=== PATIENT | female | born 1960 | race Caucasian/White ===

== ENCOUNTER 2017-01-02 13:33 | Emergency (ER) | payer OTHER ==
[2017-01-02 13:59] VITALS: BMI 34.4
[2017-01-02 14:05] VITALS: O2SAT 98
--- NOTE | 2017-01-02 14:48 | C.PDOC ---
History Of Present Illness Patient is a 56 year old female who presents to the ER with a complaint of a headache for the past 4 days and weakness for the past 6 months. Patient states she went to ENT doctor today who diagnosed her headache as a result of congestion. Patient also states her weakness gets better after she eats but comes back. Patient has a history of thyroid problems, HTN, diabetes, depression , and anxiety. Denies any nausea, vomiting, or diarrhea. PMD: In [place], [place] Time Seen by Provider: 01/02/17 14:34 Chief Complaint (Nursing): Weakness/Neurological Deficit History Per: Patient History/Exam Limitations: no limitations Onset/Duration Of Symptoms: Days (4 day headache, 6 months weakness) Current Symptoms Are (Timing): Still Present Past Medical History Reviewed: Historical Data, Nursing Documentation, Vital Signs Vital Signs: Last Vital Signs Temp 97.2 F L 01/02/17 16:14 Pulse 60 01/02/17 16:14 Resp 18 01/02/17 16:14 BP 102/67 01/02/17 16:14 Pulse Ox 98 01/02/17 16:30 - Medical History PMH: Anxiety, Arthritis (carpal tunnel), Depression, Gastritis, HTN, Hypercholesterolemia, Hyperlipidemia, Hypothyroidism, TIA (JANUARY 2016) - [facility] Procedures FLUOROSCOPY OF LEFT HEART USING LOW OSMOLAR CONTRAST (04/13/16) FLUOROSCOPY OF MULT COR ART USING L OSM CONTRAST (04/13/16) MEASURE OF CARDIAC SAMPL & PRESSURE, L HEART, PERC APPROACH (04/13/16) Family History: States: Diabetes - Social History Hx Tobacco Use: No Hx Alcohol Use: Yes Hx Substance Use: No - Immunization History Hx Tetanus Toxoid Vaccination: No Hx Influenza Vaccination: Yes (2016) Hx Pneumococcal Vaccination: No Review Of Systems Constitutional: Negative for: Fever, Chills ENT: Negative for: Nose Congestion Cardiovascular: Negative for: Chest Pain, Palpitations Respiratory: Negative for: Shortness of Breath Gastrointestinal: Negative for: Nausea, Vomiting, Diarrhea Neurological: Positive for: Headache Physical Exam - Physical Exam Appears: Well, Non-toxic Skin: Normal Color, Warm, Dry Head: Atraumatic, Normacephalic, Tenderness (frontal sinus tenderness) Eye(s): bilateral: Normal Inspection, EOMI Nose: Normal Oral Mucosa: Moist Tongue: Normal Appearing Lips: Normal Appearing Throat: Normal Neck: Normal Chest: Symmetrical Cardiovascular: Rhythm Regular, No Murmur Respiratory: Normal Breath Sounds, No Rales, No Rhonchi, No Wheezing Gastrointestinal/Abdominal: Soft, No Tenderness Extremity: No Pedal Edema Neurological/Psych: Oriented x3, Normal Speech, Normal Cognition ED Course And Treatment - Laboratory Results Result Diagrams: 01/02/17 15:10 01/02/17 15:10 O2 Sat by Pulse Oximetry: 98 (Room air) Pulse Ox Interpretation: Normal Progress Note: Blood work, chest x-ray, and urinalysis ordered. Medical Decision Making Medical Decision Making: Initial Impression: 1) Sinusitis, 2) Generalized Malaise Initial Plan: Will check labs Progress notes: 16:20 PM - Pt feels better; looks well. will d/c home Disposition Counseled Patient/Family Regarding: Studies Performed, Diagnosis, Need For Followup, Rx Given - Disposition Disposition: HOME/ ROUTINE Disposition Time: 16:27 Condition: GOOD Additional Instructions: Ms. Wells, thank you for letting us take care of you today. Return to the ER if your symptoms worsen, or if any problems. Your ENT doctor gave you two prescriptions (Bactrim and Flonase). Please be sure to take those medications as prescribed. Follow up with your primary care physician in [place] next week for a re- evaluation. Prescriptions: Ibuprofen [Motrin] 1 tab PO Q8 PRN #30 tab PRN Reason: Pain, Moderate (4-7) Instructions: Sinusitis (ED) Forms: Gen Discharge Inst Israeli Print Language: [place] R[place] - Clinical Impression Clinical Impression: Sinusitis - Scribe Statement The provider has reviewed the documentation as recorded by the Kathleenibbryanna Denton All medical record entries made by the Kathleenibbryanna were at my direction and personally dictated by me. I have reviewed the chart and agree that the record accurately reflects my personal performance of the history, physical exam, medical decision making, and the department course for this patient. I have also personally directed, reviewed, and agree with the discharge instructions and disposition.
[2017-01-02 15:18] LABS: BASO # 0.1 K/uL (0.0-0.2); EOS # 0.1 K/uL (0.0-0.7); EOS % 2.4 % (0.0-4.0); HEMATOCRIT 31.7 % (34.0-47.0); LYMPH # 1.9 K/uL (1.0-4.3); LYMPH % 31.2 % (20.0-40.0); MEAN CELL VOLUME 82.3 fL (81.0-99.0); MEAN CORPUSCULAR HEMOGLOBIN 26.3 pg (27.0-31.0); MEAN PLATELET VOLUME 10.3 fL (7.2-11.7); MONO # 0.4 K/uL (0.0-0.8); NRBC % 0.1 % (0.0-2.0); RED CELL DISTRIBUTION WIDTH 15.5 % (11.5-14.5); WHITE BLOOD COUNT 6.2 K/uL (4.8-10.8)
--- NOTE | 2017-01-02 15:22 | RAD ---
HISTORY: Complaint of Katie normal as. COMPARISON: No prior. TECHNIQUE: Chest PA and lateral FINDINGS: LUNGS: No active pulmonary disease. PLEURA: No significant pleural effusion identified. No pneumothorax apparent. CARDIOVASCULAR: No radiographic findings to suggest acute or significant cardiovascular disease. OSSEOUS STRUCTURES: No significant abnormalities. VISUALIZED UPPER ABDOMEN: Normal. OTHER FINDINGS: None. IMPRESSION: No active disease. No significant interval change compared to the prior examination(s).
[2017-01-02 15:29] LABS: RBC URINE 4 /hpf (0-3); URINE BILIRUBIN NEGATIVE (NEGATIVE); URINE BLOOD NEGATIVE (NEGATIVE); URINE COLOR Yellow (YELLOW); URINE GLUCOSE (UA) NORMAL (Normal); URINE KETONE NEGATIVE (NEGATIVE); URINE LEUKOCYTE ESTERASE 2+ Leu/uL (Negative); URINE PROTEIN NEGATIVE (NEGATIVE); URINE UROBILINOGEN NORMAL mg/dL (0.2-1.0); WBC URINE 24 /hpf (0-5)
[2017-01-02 15:50] LABS: CHLORIDE 101 mmol/L (98-107); POTASSIUM 4.3 mmol/L (3.6-5.2); SODIUM 137 mmol/L (132-148)
[2017-01-02 15:52] LABS: BILIRUBIN,TOTAL 0.5 mg/dL (0.2-1.3); GFR AFRICAN-AMERICAN > 60
[2017-01-02 15:53] LABS: ALB/GLOB RATIO 1.5 (1.0-2.1); ALKALINE PHOSPHATASE 70 U/L (38-126); ALT/SGPT 22 U/L (9-52); AST/SGOT 24 U/L (14-36); BLOOD UREA NITROGEN 18 mg/dL (7-17); CALCIUM 8.5 mg/dl (8.6-10.4); CARBON DIOXIDE 26 mmol/L (22-30); GLUCOSE,RANDOM 98 mg/dL (65-105); TOTAL PROTEIN 7.1 g/dL (6.3-8.3)
[2017-01-02 16:14] VITALS: BP 102/67; PULSE 60; RESP 18; TEMP 97.2
--- NOTE | 2017-01-06 12:28 | CARD ---
APPROVED REPORT EKG Measurement Heart [id number] CT [id number] <Conclusion> Normal sinus rhythm Normal ECG
== END 2017-01-02 16:56 | disposition home or self-care (01) ==
LOC: C.ER 13:33
DX: J32.9 Chronic sinusitis, unspecified (principal)

== ENCOUNTER 2017-03-08 10:12 | Emergency (ER) | payer OTHER ==
[2017-03-08 10:13] VITALS: BMI 34.4
[2017-03-08 10:17] VITALS: BP 118/74; PULSE 63; TEMP 97.9
[2017-03-08 10:57] LABS: RBC URINE 4 /hpf (0-3); URINE BACTERIA RARE (<OCC); URINE BILIRUBIN NEGATIVE (NEGATIVE); URINE BLOOD NEGATIVE (NEGATIVE); URINE COLOR Yellow (YELLOW); URINE GLUCOSE (UA) NORMAL (Normal); URINE KETONE TRACE mg/dL (NEGATIVE); URINE LEUKOCYTE ESTERASE 3+ Leu/uL (Negative); URINE PROTEIN NEGATIVE (NEGATIVE); WBC URINE 24 /hpf (0-5)
[2017-03-08] MEDS ORDERED: Naproxen 550 mg Tab PO STA (10:59)
[2017-03-08] MEDS ORDERED: Naproxen 550 mg Tab PO ONE (11:10)
[2017-03-08 11:13] VITALS: RESP 18
[2017-03-08 11:14] VITALS: O2SAT 99
--- NOTE | 2017-03-08 11:14 | C.PDOC ---
History Of Present Illness Patient c/o suprapubic & low back pain, dysuria x 2 days. She denies hematuria , nausea/vomiting/diarrhea, vaginal bleeding/discharge, fever, falls/injuries. PMHx of DM, HTN, hypothyroidism. Time Seen by Provider: 03/08/17 10:23 Chief Complaint (Nursing): Female Genitourinary History Per: Patient History/Exam Limitations: no limitations Onset/Duration Of Symptoms: Days (2) Current Symptoms Are (Timing): Still Present Severity: Mild Quality Of Discomfort: "Pain" Abnormal Vaginal Bleeding: No Past Medical History Reviewed: Historical Data, Nursing Documentation, Vital Signs Vital Signs: Last Vital Signs Temp 97.9 F 03/08/17 11:13 Pulse 63 03/08/17 11:13 Resp 18 03/08/17 11:13 BP 118/74 03/08/17 11:13 Pulse Ox 99 03/08/17 11:17 - Medical History PMH: Anxiety, Arthritis (carpal tunnel), Depression, Gastritis, HTN, Hypercholesterolemia, Hyperlipidemia, Hypothyroidism, TIA (JANUARY 2016) - [facility] Procedures FLUOROSCOPY OF LEFT HEART USING LOW OSMOLAR CONTRAST (04/13/16) FLUOROSCOPY OF MULT COR ART USING L OSM CONTRAST (04/13/16) MEASURE OF CARDIAC SAMPL & PRESSURE, L HEART, PERC APPROACH (04/13/16) Family History: States: Diabetes - Social History Hx Tobacco Use: No Hx Alcohol Use: Yes Hx Substance Use: No - Immunization History Hx Tetanus Toxoid Vaccination: No Hx Influenza Vaccination: Yes (2016) Hx Pneumococcal Vaccination: No Review Of Systems Except As Marked, All Systems Reviewed And Found Negative. Constitutional: Negative for: Fever, Chills Cardiovascular: Negative for: Chest Pain, Palpitations Respiratory: Negative for: Shortness of Breath Gastrointestinal: Negative for: Nausea, Vomiting, Abdominal Pain, Diarrhea Genitourinary: Positive for: Dysuria, Pelvic Pain. Negative for: Hematuria, Vaginal Discharge, Vaginal Bleeding Skin: Negative for: Rash Physical Exam - Physical Exam Appears: Well, Non-toxic, No Acute Distress Skin: Normal Color, Warm, Dry, No Rash Oral Mucosa: Moist Cardiovascular: Rhythm Regular Respiratory: Normal Breath Sounds, No Rales, No Rhonchi, No Wheezing Gastrointestinal/Abdominal: Normal Exam, Bowel Sounds, Soft, No Tenderness, No Distention, No Guarding, No Rebound, Other (obese) Back: Normal Inspection, No CVA Tenderness, No Vertebral Tenderness, No Paraspinal Tenderness Extremity: Normal ROM Extremity: Bilateral: Atraumatic Neurological/Psych: Oriented x3 ED Course And Treatment O2 Sat by Pulse Oximetry: 99 (RA) Pulse Ox Interpretation: Normal Progress Note: Accucheck ordered - WNL. UA ordered and reviewed, shows +wbc/ leuk esterase/bacteria. Disposition - Disposition Referrals: [facility] [Outside] Disposition: HOME/ ROUTINE Condition: STABLE Additional Instructions: SEGUIMIENTO CON MCKEE MDICO EN 1-2 DE LA ROSA USE MEDICAMENTOS SEGN LO DIRIGIDO BEBER ABUNDANTE AGUA DEVUELVA A LA TIAGO DE EMERGENCIA SI LOS SNTOMAS EMPEORARAN Prescriptions: Ciprofloxacin [Cipro] 1 tab PO BID #14 tab Hydrocortisone 1% Cream [Cortizone 1% Cream] 1 applic TOP BID #1 tube Naproxen [Naprosyn Tab] 375 mg PO BID PRN #20 tab PRN Reason: pain Instructions: Urinary Tract Infection in Women (ED) Print Language: YAKUT - Clinical Impression Clinical Impression: UTI (urinary tract infection)
== END 2017-03-08 11:13 | disposition home or self-care (01) ==
LOC: C.ER 10:12
DX: N39.0 Urinary tract infection, site not specified (principal)